=== PATIENT | female | born 1995 | race Caucasian/White ===

== ENCOUNTER 2019-04-08 18:34 | Emergency (ER) | payer OTHER ==
[~2019-04-08] VITALS: Ht 175.3 cm; Wt 79.0 kg
[2019-04-08 19:19] VITALS: BP 144/56
[2019-04-08] MEDS ORDERED: LIDOCAINE 1%/EPI 1:100,000 20 ML VIAL. IJ ONE (20:30)
[2019-04-08] MEDS ORDERED: AMOX1TAB61 PO (20:58)
--- NOTE | 2019-04-08 20:58 | PHYS DOC ---
Past History Past Medical History: No Pertinent History Past Surgical History: No Surgical History Alcohol Use: Occasionally Adult General Chief Complaint Chief Complaint: ANIMAL BITE HPI HPI Patient is a 23 year old female who presents with complaint of dog bites to the bilateral upper extremities. She states that this happened shortly prior to arrival. Patient states she was bit by her own dog. The dog was fighting another dog. She states that she tried to keep the dogs from fighting and was bit while trying to separate the dogs. Suffered bite wounds to both forearms and the left hand. Denies any other injuries. States that the dog's immunizations are up-to-date including rabies vaccine. Patient however states that her tetanus vaccination is not up-to-date currently. Review of Systems Review of Systems Constitutional: Denies fever or chills [] Eyes: Denies change in visual acuity, redness, or eye pain [] HENT: Denies nasal congestion or sore throat [] Respiratory: Denies cough or shortness of breath [] Cardiovascular: Denies chest pain or edema[] GI: Denies abdominal pain, nausea, vomiting, bloody stools or diarrhea [] : Denies dysuria or hematuria [] Musculoskeletal: Denies back pain or joint pain [] Integument: Bite wounds to bilateral upper extremities[] Neurologic: Denies headache, focal weakness or sensory changes [] Endocrine: Denies polyuria or polydipsia [] All other systems were reviewed and found to be within normal limits, except as documented in this note. Current Medications Current Medications Current Medications Medications (Trade) Dose Ordered Sig/[facility] Start Time Stop Time Status Last Admin Dose Admin Lidocaine/ Epinephrine (Xylocaine 1%-Epi 1:100,000) 20 ml 1X ONCE 04/08/19 20:30 04/08/19 20:31 04/08/19 20:25 20 ML Allergies Allergies Allergies Coded Allergies Type Severity Reaction Last Updated Verified No Known Drug Allergies 04/08/19 No Physical Exam Physical Exam Constitutional: Well developed, well nourished, no acute distress, non-toxic appearance. [] HENT: Normocephalic, atraumatic, bilateral external ears normal, oropharynx moist, no oral exudates, nose normal. [] Eyes: PERRLA, EOMI, conjunctiva normal, no discharge. [] Neck: Normal range of motion, no tenderness, supple, no stridor. [] Cardiovascular:Heart rate regular rhythm, no murmur [] Lungs & Thorax: Bilateral breath sounds clear to auscultation [] Abdomen: Bowel sounds normal, soft, no tenderness, no masses, no pulsatile masses. [] Skin: Warm, dry, no erythema, no rash. [] Back: No tenderness, no CVA tenderness. [] Extremities: 1.5 cm transverse laceration on dorsum of the distal left forearm through dermis into subcutaneous layer, no exposed tendon or muscle noted. There is an additional 1.5 cm transverse laceration involving the ventral aspect of the distal right forearm through dermis into subcutaneous layer, no exposed tendon or muscle noted. Additional puncture wounds to the palmar aspect of the left hand. No tenderness, no cyanosis, no clubbing, ROM intact, no edema. [] Neurologic: Alert and oriented X 3, normal motor function, normal sensory function, no focal deficits noted. [] Current Patient Data Vital Signs Vital Signs Date Time Temp Pulse Resp B/P (MAP) Pulse Ox O2 Delivery O2 Flow Rate FiO2 04/08/19 19:19 98.8 20 144/56 (85) 99 Room Air Lab Results Not performed EKG EKG Not performed[] Radiology/Procedures Radiology/Procedures Indication: Lacerations to left and right forearms Procedure: The patient was placed in the appropriate position and anesthesia around the laceration was achieved with injection of lidocaine 1% with ep inephrine. The area was then with high-pressure saline and prepped with Betadine. The laceration on the left forearm was closed using simple interrupted 4-0 Ethilon suture for a total of 2 sutures. The laceration of the right forearm was closed using simple interrupted 4-0 Ethilon suture for a total of 3 sutures. The wound area was then dressed with adhesive bandage. Total repaired wound length: 3 cm. Other Items: Total suture count: 5 The patient tolerated the procedure without difficulty. Complications: None.[] Course & Med Decision Making Course & Med Decision Making Pertinent Labs and Imaging studies reviewed. (See chart for details) Patient's lacerations were repaired as outlined in procedure note. Tetanus immunization updated in the emergency department. Patient started on Augmentin for infection prophylaxis. Will continue on 5 day course of Augmentin. Advised follow-up with primary doctor in the next 10 days for removal of sutures. Advised return to emergency department for any worsening symptoms. Patient was understanding and in agreement with treatment plan.[] Dragon Disclaimer Dragon Disclaimer This electronic medical record was generated, in whole or in part, using a voice recognition dictation system. Departure Departure: Impression: Primary Impression: Dog bite of right arm Additional Impression: Dog bite of left arm Disposition: HOME, SELF-CARE Condition: IMPROVED Referrals: PCP,NO (PCP) Patient Instructions: Animal Bite, Sutured Wound Care Additional Instructions: Follow-up with your primary doctor in 10 days for reevaluation and removal of stitches. Return to the emergency department for any worsening symptoms. Scripts Amoxicillin/Potassium Clav (AUGMENTIN 875-125 TABLET) 1 Each Tablet 1 TAB PO BID for 5 Days, #10 TAB 0 Refills Prov: OUMOU BARRERA MD 04/08/19 Problem Qualifiers Primary Impression: Dog bite of right arm Encounter type: initial encounter Qualified Codes: S41.151A - Open bite of right upper arm, initial encounter; W54.0XXA - Bitten by dog, initial encounter Additional Impression: Dog bite of left arm Encounter type: initial encounter Qualified Codes: S41.152A - Open bite of left upper arm, initial encounter; W54.0XXA - Bitten by dog, initial encounter OUMOU BARRERA MD Apr 08, 2019 20:58
[2019-04-08] MEDS ORDERED: AMOXICILLIN/K CLAV 875/125MG TABLET. ONE (21:04)
[2019-04-08] MEDS ORDERED: DIPHTH,PERTUSS(ACELL),TET TOX 0.5 ML DISP.SYRIN. VAX IM ONE (21:15)
[2019-04-08] MEDS ORDERED: AMOXICILLIN/K CLAV 875/125MG TABLET. PO ONE (21:15)
== END 2019-04-08 21:24 | disposition home or self-care (01) ==
LOC: ER 18:34
DX: S51.852A Open bite of left forearm, initial encounter (principal); S51.851A Open bite of right forearm, initial encounter; W54.0XXA Bitten by dog, initial encounter; Y93.89 Activity, other specified; Y92.89 Other specified places as the place of occurrence of the external cause; Y99.8 Other external cause status
CPT/HCPCS: 12002; 90471; 90715; 99284